=== PATIENT | female | born 1980 | race Caucasian/White ===

== ENCOUNTER 2020-07-10 18:35 | Emergency (ER) | payer SELFPAY ==
[~2020-07-10] VITALS: Ht 165.1 cm; Wt 86.2 kg
[2020-07-10] MEDS ORDERED: ULTRAM50 MG PO (19:39)
[2020-07-10] MEDS ORDERED: DOXYCYCLINE HY100 MG PO (19:39)
== END 2020-07-10 19:52 | disposition home or self-care (01) ==
LOC: ED 18:35
DX: L60.0 Ingrowing nail (principal); L03.031 Cellulitis of right toe
CPT/HCPCS: 99283

== ENCOUNTER 2020-11-18 19:07 | Emergency (ER) | payer OTHER ==
[~2020-11-18] VITALS: Ht 165.1 cm; Wt 83.9 kg
[~2020-11-18 19:07] MED LIST: DOXYCYCLINE HY100 MG PO; ULTRAM50 MG PO
== END 2020-11-18 21:16 | disposition home or self-care (01) ==
LOC: ED 19:07
DX: U07.1 COVID-19 (principal)
CPT/HCPCS: 99284; C9803; U0003